=== PATIENT | female | born 1955 | race Caucasian/White ===

== ENCOUNTER 2018-06-14 09:12 | Outpatient (CLI) | payer BC | END 2018-06-14 09:13 | disposition home or self-care (01) | LOC: BICMAMMO 09:12 | PROVIDERS: ATTEND Obstetrics & Gynecology | DX: Z12.31 Encounter for screening mammogram for malignant neoplasm of breast (principal); Z80.3 Family history of malignant neoplasm of breast | CPT/HCPCS: 77063; 77067 ==

== ENCOUNTER 2018-12-22 08:36 | Outpatient (CLI) | payer BC, OTHER ==
[~2018-12-22 08:36] MED LIST: Gadobenate Dimeglumine 529 MG/1 ML (20ML VIAL) ONE
--- NOTE | 2018-12-22 12:21 | MRI ---
MRI RIGHT UPPER EXTREMITY WITH AND WITHOUT CONTRAST: Date: 12/22/18 INDICATION: Forearm mass. TECHNIQUE: Multiplanar, multisequence MR images were obtained of the right forearm in the region of interest wit h and without contrast utilizing 13 mL of MultiHance. No comparisons are available. FINDINGS: There is a nonenhancing fat signal intensity mass centered within the musculature of the supinator. T he lesion measures 4.1 x 6.6 cm greatest mediolateral and craniocaudad dimensions. No definite abnorm al peripheral enhancing nodularity or internal enhancing septation evident. Bone marrow signal intens ity appears within normal limits. No joint effusion is evident. There is a small synovial cyst seen a long the anterior margin of the elbow measuring 1.4 cm adjacent to the radiocapitellar joint on image 11 of series 6. IMPRESSION: Intramuscular lipoma of the supinator. POS: KAREY
== END 2018-12-22 08:37 | disposition home or self-care (01) ==
LOC: MRI 08:36
PROVIDERS: ATTEND Surgery
DX: R22.31 Localized swelling, mass and lump, right upper limb (principal); D17.9 Benign lipomatous neoplasm, unspecified
CPT/HCPCS: 82565; A9577

== ENCOUNTER 2019-11-23 06:50 | Outpatient (CLI) | payer OTHER ==
[2019-11-23 15:22] LABS: #Basophils 0.1 thou/uL (0.0-0.2); #Eosinphils 0.2 thou/uL (0.0-0.7); #Lymphocytes 2.1 thou/uL (1.20-3.40); #Monocytes 0.7 thou/uL (0.11-0.59); #Neutrophils 4.7 thou/uL (1.40-6.50); %Basophils 0.8 % (0.0-1.0); %Eosinophils 2.5 % (0.0-10.0); %Lymphocytes 27.4 % (21.0-51.0); %Monocytes 8.6 % (0.0-10.0); %Neutrophils 60.7 % (42.0-75.0); Hemoglobin 14.3 g/dL (12.0-16.0); Mean Corpuscular HGB CONC 33.4 g/dL (32.0-36.0); Mean Corpuscular Hemoglobin 30.8 pg (27.0-31.0); Mean Corpuscular Volume 92.2 fL (78.0-98.0); Mean Platelet Volume 9.3 fL (7.4-10.4); Platelet Count 267 thou/uL (130-400); RBC Distribution Width 11.1 % (11.5-14.5); Red Blood Cell (RBC) Count 4.65 mill/uL (4.20-5.40); White Blood Cell (WBC) Count 7.7 thou/uL (4.8-10.8)
--- NOTE | 2019-11-24 16:54 | EKG ---
Test Reason : Blood Pressure : / mmHG Vent. Rate : 080 BPM Atrial Rate : 080 BPM P-R Int : 168 ms QRS Dur : 068 ms QT Int : 362 ms P-R-T Axes : 079 069 074 degrees QTc Int : 417 ms Normal sinus rhythm Normal ECG No previous ECGs available Confirmed by KSENIA LEO ([id number]) on 11/24/2019 4:54:20 PM Referred By: ASHVIN Confirmed By:KSENIA LEO
== END 2019-11-23 06:51 | disposition home or self-care (01) ==
LOC: LABBT 06:50
PROVIDERS: ATTEND Orthopaedic Surgery Hand Surgery
DX: Z01.818 Encounter for other preprocedural examination (principal); D17.21 Benign lipomatous neoplasm of skin and subcutaneous tissue of right arm
CPT/HCPCS: 85025; 93005; 93010

== ENCOUNTER 2019-11-25 06:45 | Day surgery (SDC) | payer OTHER ==
[2019-11-23 16:04] VITALS: BMI 27.3
[2019-11-25] MEDS ORDERED: Clindamycin/D5W 600 mg/50 ml Premix Bag ONE (08:01)
[2019-11-25] MEDS ORDERED: Betamet Acet/Betamet Na Ph 30 MG/5 ML VIAL ONE (08:48)
[2019-11-25] MEDS ORDERED: Bupivacaine PF 0.5% 30 ML VIAL ONE (08:48)
[2019-11-25] MEDS ORDERED: Bacitracin Zinc Ointment 30 gm TUBE ONE (08:48)
[2019-11-25] MEDS ORDERED: Fentanyl 100 MCG/2 ML VIAL ONE (08:54)
[2019-11-25] MEDS ORDERED: Ondansetron PF 4 MG/2 ML Vial ONE (10:20)
[2019-11-25] MEDS ORDERED: PROPOFOL 200 MG/20 ML VIAL ONE (10:20)
[2019-11-25] MEDS ORDERED: Dexamethasone 20 MG/5 ML VIAL ONE (10:20)
[2019-11-25] MEDS ORDERED: Lidocaine 1% PF 5 ML VIAL ONE (10:20)
[2019-11-25] MEDS ORDERED: Ketorolac Tromethamine 30 MG/ML VIAL ONE (10:20)
--- NOTE | 2019-11-25 14:05 | OP ---
DATE OF PROCEDURE: 11/25/2019 PREOPERATIVE DIAGNOSES: 10 cm lipoma, right forearm over the posterior interosseous nerve. FINDINGS: posterior interosseous nerve, it was 10 cm lipoma. PROCEDURE PERFORMED: 1. Right forearm level radial nerve (posterior interosseus nerve branch) neuroplasty. 2. Excision benign mass, 10 cm (intermuscular lipoma). SPECIMEN SENT: Lipoma, forearm right intermuscular. TOURNIQUET TIME: 19 minutes. ESTIMATED BLOOD LOSS: 20 mL. INDICATION: Mass without neural abnormality. MRI consistent with mass involving some of the supinator muscle and the interval between the ECRB and ECRL. DESCRIPTION OF PROCEDURE: After successful general endotracheal anesthesia, the limb was prepped and draped. We then outlined the mass. A zigzag incision was made in line with a modified Corwin approach, which would be central over the mass. Incision began 2 cm distal to the lateral epicondyle. We then gave the patient 20 mL of 0.5% Marcaine along the incision line and around the periphery of the mass, waited 5 minutes, exsanguinated the limb and inflated the tourniquet to 150 mmHg pressure. We made incision through skin in a zigzag pattern, dissected subcutaneous tissue, and entered the fascia interval between the ECRB and ECRL. We did finger dissection until we identified, with the arm supinated, posterior interosseous nerve high in the proximal aspect of the incision. We then slowly performed a posterior interosseous nerve neuroplasty, and at the same time, we the mass from the sheath. The mass occupied most of the supinator muscle, so the branch supinator was then just a residual muscle. We then freed the lipoma using blunt dissection with a crile and hemostat, and when we finished, we lifted it off the nerve. There was a 1 cm area supinate still left over the distal posterior interosseous nerve, we released this as well, given a complete posterior interosseous nerve neuroplasty. We removed the mass, we noticed a gap in the muscle where some of the ECRB and ECRL had been and the supinator. We placed Celestone over the nerve. Deflated the tourniquet and obtained hemostasis. We closed the fascia with interrupted running 2-0 suture. Subcutaneous closure with 4-0 Monocryl in a running fashion. Skin reapproximated with 3-0 nylon in an interrupted mattress pattern. We gave 10 more mL along the suture line of Marcaine 0.5%, no epi, placed a bulky dressing with bacitracin, Adaptic, 4x4, Kerlix, and 2 Jadiel wraps, beginning just proximal to the elbow and all the way to the level of the first web space. There was no complication, and as the patient was moved onto the table, she awakened, she dorsiflexed the wrist, extended the thumb, extended the digits, all without weakness. Job ID: [id number]
== END 2019-11-25 12:36 | disposition home or self-care (01) ==
LOC: SDC 06:45
PROVIDERS: ATTEND Orthopaedic Surgery Hand Surgery
PROC: 0KB90ZZ Excision of Right Lower Arm and Wrist Muscle, Open Approach (ICD-10-PCS; principal; 2019-11-25)
PROC: 01N60ZZ Release Radial Nerve, Open Approach (ICD-10-PCS; principal; 2019-11-25)
DX: D17.79 Benign lipomatous neoplasm of other sites (principal); F41.9 Anxiety disorder, unspecified; E78.00 Pure hypercholesterolemia, unspecified; Z79.899 Other long term (current) drug therapy; Z88.1 Allergy status to other antibiotic agents; Z91.018 Allergy to other foods
CPT/HCPCS: 88304; J0702; J1100; J1885; J2001; J2405; J2704; J3010; J3490; S0020

== ENCOUNTER 2024-02-15 10:13 | Outpatient (CLI) | payer MEDICARE | END 2024-02-15 10:14 | disposition home or self-care (01) | LOC: BICMAMMO 10:13 | PROVIDERS: ATTEND Student in an Organized Health Care Education/Training Program | DX: N64.52 Nipple discharge (principal) | CPT/HCPCS: 76642; 77065; G0279 ==

== ENCOUNTER 2024-02-24 13:20 | Outpatient (CLI) | payer MEDICARE | END 2024-02-24 13:21 | disposition home or self-care (01) | LOC: BICMRI 13:20 | PROVIDERS: ATTEND Surgery | DX: N64.52 Nipple discharge (principal); R92.323 Mammographic fibroglandular density, bilateral breasts | CPT/HCPCS: 82565; C8908; A9577 ==

== ENCOUNTER 2025-08-10 14:25 | Outpatient (CLI) | payer MEDICARE | END 2025-08-10 14:26 | disposition home or self-care (01) | LOC: BICMAMMO 14:25 | PROVIDERS: ATTEND Obstetrics & Gynecology | DX: Z78.0 Asymptomatic menopausal state (principal); M85.851 Other specified disorders of bone density and structure, right thigh; M85.852 Other specified disorders of bone density and structure, left thigh | CPT/HCPCS: 77080 ==